=== PATIENT | female | born 1975 | race Caucasian/White ===

== ENCOUNTER 2016-09-16 09:25 | Day surgery (SDC) | payer OTHER | END 2016-09-16 13:30 | disposition short-term general hospital (02) | LOC: CLPAIN 09:25 → INF/INJ 09:25 → SURGOP 09:25 → EDSTATUS 11:11 → SURGOP 13:30 → CLPAIN 16:43 | PROC: 3E0R33Z Introduction of Anti-inflammatory into Spinal Canal, Percutaneous Approach (ICD-10-PCS; principal; 2016-09-16) | PROC: 3E0R3BZ Introduction of Anesthetic Agent into Spinal Canal, Percutaneous Approach (ICD-10-PCS; 2016-09-16) | DX: M54.16 Radiculopathy, lumbar region (principal); Z90.89 Acquired absence of other organs | CPT/HCPCS: J1040; J1100; Q9967 ==

== ENCOUNTER → 2016-09-19 | Outpatient (CLI) | payer OTHER | END | disposition short-term general hospital (02) | LOC: CLNEUR 08:35 | DX: M54.5 Low back pain (principal); M79.605 Pain in left leg; M51.36 Other intervertebral disc degeneration, lumbar region; M43.16 Spondylolisthesis, lumbar region ==

== ENCOUNTER 2016-09-30 11:24 | Day surgery (SDC) | payer OTHER | END 2016-09-30 15:07 | disposition short-term general hospital (02) | LOC: CLPAIN 11:24 → SURGOP 11:24 → EDSTATUS 12:54 → CLPAIN 15:05 → SURGOP 15:07 | PROC: 3E0R3BZ Introduction of Anesthetic Agent into Spinal Canal, Percutaneous Approach (ICD-10-PCS; principal; 2016-09-30) | PROC: 3E0R33Z Introduction of Anti-inflammatory into Spinal Canal, Percutaneous Approach (ICD-10-PCS; 2016-09-30) | DX: M51.16 Intervertebral disc disorders with radiculopathy, lumbar region (principal); J45.909 Unspecified asthma, uncomplicated; Z79.899 Other long term (current) drug therapy | CPT/HCPCS: J1040; J1100; Q9967 ==